=== PATIENT | female | born 1970 | race African-American/Black ===

== ENCOUNTER 2022-04-22 14:07 | Outpatient (CLI) | payer OTHER | END 2022-04-22 19:24 | disposition home or self-care (01) | LOC: MAMMO 14:07 | PROVIDERS: ATTEND Internal Medicine | DX: Z12.31 Encounter for screening mammogram for malignant neoplasm of breast (principal) ==

== ENCOUNTER 2023-05-04 09:49 | Outpatient (CLI) | payer OTHER | END 2023-05-04 19:43 | disposition home or self-care (01) | LOC: MAMMO 09:49 | PROVIDERS: ATTEND Internal Medicine | DX: Z12.31 Encounter for screening mammogram for malignant neoplasm of breast (principal) ==